=== PATIENT | female | born 1950 | race Caucasian/White ===

== ENCOUNTER 2018-12-20 13:52 | Inpatient (IN) | payer OTHER ==
[~2018-12-20] VITALS: Ht 160 cm; Wt 57.2 kg
[2018-12-20 14:00] VITALS: BP 157/80
[2018-12-20 14:08] LABS: ABSOLUTE NEUTROPHILS 5.7 thou/uL (1.4-8.2); BASOPHILS 0.5 % (0.0-2.0); EOSINOPHILS 1.3 % (0.0-3.0); HEMOGLOBIN 7.8 gm/dL (12.0-15.0); LYMPHOCYTES 20.7 % (24.0-44.0); MCH 30.1 pg (26.0-34.0); MCHC 33.8 g/dL (28.0-37.0); MCV 88.9 fL (80.0-100.0); MONOCYTES 6.4 % (1.0-8.0); PLATELET COUNT 616 thou/uL (150-400); POLYS 71.1 % (36.0-66.0); RBC 2.59 mil/uL (4.20-5.00); WBC 8.1 thou/uL (4.0-11.0)
[2018-12-20 14:15] LABS: CREATININE 0.9 mg/dL (0.6-1.0); POTASSIUM 4.4 mmol/L (3.5-5.1)
[2018-12-20 14:20] LABS: ALBUMIN 1.9 g/dL (3.4-5.0); TOTAL BILIRUBIN 0.2 mg/dL (<0.1-1.0); TOTAL PROTEIN 6.4 g/dL (6.4-8.2)
[2018-12-20 14:57] LABS: INR 1.1; PROTIME 11.2 Seconds (9.3-11.4)
[2018-12-20] MEDS ORDERED: MIRALAX17 GM PO (15:53)
[2018-12-20] MEDS ORDERED: ONDANSETRON HCL4 M2 PO (15:53)
[2018-12-20] MEDS ORDERED: POTASSIUM20 PO (15:54)
[2018-12-20] MEDS ORDERED: SEROQUEL 25 MG25 M1 PO (15:55)
[2018-12-20] MEDS ORDERED: TRAMADOL 50 MG50 MG PO (15:55)
[2018-12-20] MEDS ORDERED: CEFAZOLIN2 GM/100 M IV (15:56)
[2018-12-20] MEDS ORDERED: VITAMIN D3400 UNIT PO (15:57)
[2018-12-20] MEDS ORDERED: MAG-OXIDE400 MG PO (15:58)
[2018-12-20] MEDS ORDERED: MELATONIN3 MG PO (15:58)
[2018-12-20] MEDS ORDERED: LOPERAMIDE 2 MG2 M1 PO (15:58)
[2018-12-20] MEDS ORDERED: ATIVAN0.5 MG PO (16:06)
[2018-12-20] MEDS ORDERED: MULTIPLE VITAM1 EAC2 PO (16:08)
[2018-12-20 16:35] VITALS: BP 154/70
[2018-12-20 17:03] VITALS: BP 145/72
--- NOTE | 2018-12-20 17:27 | NUR ---
ADMISSION ASSESMENT COMPLETED. VSS. A/O/FORGETFUL. DENIES PAIN AT THIS TIME. NO NOTED SOA. NO NV. PT RESTING IN BED APPEARS COMFORTABLE. PT POOR HISTORIAN. UNABLE TO OBTAIN APPROPRIATE ANSWERS. WILL CONT. TO MONITOR.
[2018-12-20 18:15] VITALS: BP 145/69
[2018-12-20] MEDS ORDERED: FLONASE 0.05%50 MCG NASAL (19:18)
[2018-12-20] MEDS ORDERED: PLAVIX 75 MG TA75 M1 PO (19:18)
[2018-12-20] MEDS ORDERED: LASIX 40 MG TAB40 M2 PO (19:18)
[2018-12-20] MEDS ORDERED: GABAPENTIN 100100 MG PO (19:19)
[2018-12-20] MEDS ORDERED: HYDRALAZINE 2525 MG PO (19:20)
[2018-12-20] MEDS ORDERED: HYDROCHLOROTHIA25 M2 PO (19:20)
[2018-12-20] MEDS ORDERED: LISINOPRIL40 MG PO (19:21)
[2018-12-20] MEDS ORDERED: NOVOLOG100 UNIT/1 SUBQ (19:24)
[2018-12-20] MEDS ORDERED: CHILDREN'S ASPI81 M1 PO (19:25)
[2018-12-20] MEDS ORDERED: NORVASC5 MG PO (19:25)
[2018-12-20] MEDS ORDERED: LIPITOR 20 MG T20 M1 PO (19:26)
[2018-12-20] MEDS ORDERED: BISACODYL SUPP10 MG RECTAL (19:26)
[2018-12-20 19:44] VITALS: BP 112/70
--- NOTE | 2018-12-21 03:36 | NUR ---
PATIENT ALERT AND ORIENTED X4, FORGETFUL. IV PATENT. DRESSING ON L HEEL D/I. REMAINS ON BEDREST. SLEPT MOST OF NIGHT.
[2018-12-21 04:56] VITALS: BP 150/72
[2018-12-21 05:34] LABS: ABSOLUTE NEUTROPHILS 4.5 thou/uL (1.4-8.2); EOSINOPHILS 2.1 % (0.0-3.0); HEMATOCRIT 21.8 % (37.0-47.0); HEMOGLOBIN 7.2 gm/dL (12.0-15.0); LYMPHOCYTES 25.5 % (24.0-44.0); MCH 29.7 pg (26.0-34.0); MCV 89.7 fL (80.0-100.0); MONOCYTES 9.5 % (1.0-8.0); POLYS 61.9 % (36.0-66.0); RBC 2.43 mil/uL (4.20-5.00); RDW 14.9 % (10.5-14.5); WBC 7.3 thou/uL (4.0-11.0)
[2018-12-21 05:38] LABS: PLATELET COUNT 539 thou/uL (150-400)
[2018-12-21 05:45] LABS: CALCIUM 7.9 mg/dL (8.5-10.1); CREATININE 0.7 mg/dL (0.6-1.0); MAGNESIUM 1.2 mg/dL (1.8-2.4); POTASSIUM 4.4 mmol/L (3.5-5.1)
[2018-12-21 07:50] VITALS: BP 148/75
[2018-12-21 11:16] VITALS: BP 147/76
[2018-12-21 13:03] LABS: % SATURATION 14 % (20-39); IRON 23 ug/dL (50-170); TIBC 161 ug/dL (250-450)
--- NOTE | 2018-12-21 13:32 | NUR ---
PATIENT SLEPT MOST OF THE DAY. COMPLAINED OF MILD BACK PAIN WHEN REPOSITIONED. PATIENT DISPLAYED CONCERN WITH HAVING NOWHERE TO GO AFTER DISCHARGE AND WAS NOTICEABLY UPSET UPON DISCOVERING THAT SHE WILL BE RETURNING TO HER PREVIOUS FACILITY. AWAITING MRI. CONTINUES TO HAVE MILD, INTERMITTENT NOSEBLEEDS. ENT CONSULTED.
--- NOTE | 2018-12-21 13:43 | NUR ---
I have reviewed and concur with student documentation.
--- NOTE | 2018-12-21 14:13 | NUR ---
PT ADMITTED RELATED TO LEFT FOOT WOUND. CM REVIEWED CHART AND SPOKE WITH CARE TEAM. CM MET WITH PT AT BEDSIDE THIS DAY. PT IS A&O X4. CM ROLE INTRODUCED. PT INDICATED SHE HAD BEEN LIVING AT [facility]. SHE INDICATED SHE HAS LIVED THERE FOR A FEW YEARS. PT INDICATD SHE HAD USED A WHEELCHAIR TO ASSIST WITH MOBILITY PROP CUTTER AND THAT SHE HAD BEEN ABLE TO TRANSFER INDEPENDENT PROP CUTTER. CM CONFIRMED THAT PT'S SON BRII IS HER CONTACT/DPOA AND SHE INDICATED SHE DIDN'T KNOW WHERE HE WAS OR WHAT HE WAS DOING. CM ATTEMPTED PC TO HIM BUT NUMBER WAS BUSY. PT INDICATED SHE ANTICPATES RETURNING TO THE FACILITY ONCE MEDICALLY STABLE. CM TO FOLLOW INDICATED WITH DC PLANNING.
--- NOTE | 2018-12-21 15:32 | NUR ---
WOUND CONSULT: PT. WAS SEEN TODAY BY DR. WAKEFIELD AND MYSELF. PT. HAS MULTIPLE PRESSURE ULCERS TO HER BILATERAL LOWER EXTREMITYS: LEFT HEEL-STAGE 4 LEFT MTP JOINT-DEEP TISSUE INJURY LEFT FOOT DORSAL ASPECT-DEEP TISSUE INJURY RIGTH LATERAL LEG-STAGE 2 RIGHT MTP JOINT-DEEP TISSUE INJURY RIGHT LATERAL HEEL-UNSTAGABLE CONSULTS HAVE BEEN PLACED TO INFECTIOUS DISEASE, ORTHO AND DIETARY. ALONG WITH DIAGNOSTIC IMAGING TO GUIDE CARE. RECOMMENDATIONS: WOUND CARE TO LEFT MTP JOINT, DORSAL ASPECT, RIGHT MTP JOINT, RIGHT LATERAL HEEL: GENTLY CLEANSE WITH WOUND CLEANSER OR NORMAL SALINE, PAINT WITH BETADINE, LEAVE OPEN TO AIR, COMPLETE CARES DAILY. WOUND CARE TO LEFT HEEL: GENTLY CLEANSE AREA WITH WOUND CLEANSER OR NORMAL SALINE, COVER WITH OPTIFOAM AG, SECURE WITH KERLIX AND TAPE. COMPLETE CARES DAILY AND PRN. WOUND CARE TO RIGHT LATERAL LEG: GENTLY CLEANSE WITH WOUND CLEANSER OR NORMAL SALINE, COVER WITH OPTIFOAM BORDER, COMPLETE CARES DAILY AND PRN SOILAGE. PT. AND STAFF NURSE WERE INSTRUCTED ON PLAN OF CARE.
[2018-12-21 17:03] VITALS: BP 146/57
[2018-12-21 19:35] VITALS: BP 137/53
[2018-12-22 04:34] VITALS: BP 163/63
--- NOTE | 2018-12-22 05:20 | NUR ---
Assumed care of pt at 1900. Pt states she feels pain on bilateral legs. Prn pain meds administered. Pt able to rest comfortable most of the shift. Pt is anxious when awake. Q2h turn. Pt arterial ultrasound needs to be completed today. Fall precautions in place. Will continue to monitor.
[2018-12-22 08:10] VITALS: BP 167/61
--- NOTE | 2018-12-22 09:51 | HC ---
[facility] [place] [address] CONSULTATION Name: CAMILA LEMUS Room #: 431-P ADM IN M.R.#: [id number] Admission: 12/20/18 ������������������ Attend Phys: Michael Allan MD Discharge: ������������������ Date of : 54 Report #: [id number] THIS REPORT FOR: //name// CC: Michael Silva DATE OF SERVICE: 12/21/2018 INFECTIOUS DISEASES CONSULTATION REASON FOR CONSULTATION: Left calcaneus osteomyelitis. HISTORY OF PRESENT ILLNESS: The patient is a 68-year-old, previous stroke with right hemiparesis, who is a poor historian, presents with what sounds like epistaxis. History is poor and difficult to obtain by reading the records and discussing with the patient. I did discuss with the nursing staff who notes that the patient has had recurring epistaxis today. ENT is to evaluate her. She has underlying anxiety and was unable to go to her MRI scan of her heel as well as ultrasound of the left lower extremity arterial supply. She denies any chest pain, nausea, vomiting or diarrhea. She could give me no history regarding her foot. There is one record that she had been at [facility] for evaluation of the heel and had been on antibiotics. She does come in on cefazolin, duration of which is unclear at this point. REVIEW OF SYSTEMS: The patient was unable to give a clear review of systems history, although she reports no headache, cough or sputum production. No dysuria. ALLERGIES: None known. MEDICATIONS: As noted on NOV, now including cefazolin. PAST MEDICAL HISTORY: Recorded hypertension, hyperlipidemia, diabetes, peripheral vascular disease, stroke with right-sided hemiparesis, cataract surgery, left heel wound, peripheral vascular intervention. FAMILY HISTORY: Noncontributory. SOCIAL HISTORY: assisted resident, smoker of cigarettes, past alcohol use. PHYSICAL EXAMINATION: VITAL SIGNS: She is afebrile and hemodynamically stable. Lying in bed, in no distress. She was conversant. Had fairly dense right hemiparesis, arm greater than leg. SKIN: With small eschar to the medial distal right foot and extensive wound to the left heel region. There was exposed soft tissues and marked tenderness [facility] [address] [place] [address] CONSULTATION Name: CAMILA LEMUS Room #: 431-P ADM IN M.R.#: [id number] Admission: 12/20/18 ������������������ Attend Phys: Michael Allan MD Discharge: ������������������ Date of : 54 Report #: [id number] without definite bone palpable. The patient was very uncomfortable during her evaluation. Pulses in the left lower extremity, 3+ in the femoral, 2+ popliteal, 1+ dorsalis pedis and posterior tib. Capillary refill reasonable. Sensation in the foot normal. EYES: Without conjunctival hemorrhage or scleral icterus. MOUTH: Without mucositis. NECK: Supple, no palpable adenopathy. LUNGS: Clear. HEART: Regular, without murmur, gallop or rub. ABDOMEN: Soft, nontender, no hepatosplenomegaly or mass. Mood mildly anxious and confused. LABORATORY STUDIES: Reviewed. Hemoglobin 7.2; WBC 7.3; platelet count 539,000. Differential was unremarkable. Sodium 132, potassium 4.4, bicarbonate 23, creatinine 0.7. X-ray of the foot, left shows ulceration of the posterior aspect of the heel with cortical lucency in the calcaneus. No soft tissue ulceration. IMPRESSION: 1. A 68-year-old, previous stroke and peripheral vascular disease with a nonhealing wound to the left heel. I suspect underlying osteomyelitis of the calcaneus. 2. Peripheral vascular disease. 3. Dementia. 4. Cerebrovascular disease. 5. Epistaxis. RECOMMENDATIONS: We will continue cefazolin. Obtain previous culture results from [facility]. Orthopedic Surgery evaluation. Peripheral vascular evaluation. We will determine length of treatment depending upon the above findings and interventions. ��������������������������������������������� <ELECTRONICALLY SIGNED> ���������������������������������������� By: Timmy Sosa MD ��������������������������������������������� 12/22/18 0951 [id number] Timmy Sosa MD /nt
--- NOTE | 2018-12-22 10:39 | NUR ---
PT A&OX4, IV INTACT IN R HAND IFUSING NS @ 75ML/HR W/O COMPS. R SIDE WEAKNESS NOTED, REQUIRES MEAL TRAY SET UP. PT HAVING US/MRI AT THIS TIME. PT IS TEARFUL THIS AM DUE TO HAVING TO HAVE SURGERY 12/23/18. MEDICATED FOR LLE PAIN. WILL CONT TO MONITOR.
--- NOTE | 2018-12-22 13:30 | NUR ---
Powerbuilder spoke with the socialworker at [facility]. The pt has been there for 2 weeks under her skilled benefit. The pt came from [facility] for a snf stay and then plans to return home. Cm attempted to reach son Eliecer at his number listed as well as the pt's home number;however his number does not work and her home number was answered by someone that says they do not know the pt or cEtor. The pt reports he is homeless and she does not know how to reach him. Ortho recommendations for BKA noted. Pt is agreeable. [facility] updated. They do not have any AD/DPOA paperwork for the pt or any additional contacts. DC plan is to return there for ongoing skilled rehab and possible ltc placement.
[2018-12-22 16:33] VITALS: BP 144/55
[2018-12-22 19:35] VITALS: BP 190/74
[2018-12-23 00:03] VITALS: BP 161/90
--- NOTE | 2018-12-23 04:50 | NUR ---
Assumed care of pt at 1900. Pt c/o pain in the lower extremities and anxiety. Antianxiety and pain medications administered. Pain is tearful and expresses fear for surgery in the am. Therapeutic communication used. Per DIRECTOR MBA on duty, it was ok to give dose of fentanyl IV approx 1 hour before it is due. Prefo boots in place. BP elevated due to pt anxiety. Fall precautions in place. Will continue to monitor.
[2018-12-23 05:39] LABS: HEMATOCRIT 22.7 % (37.0-47.0); HEMOGLOBIN 7.5 gm/dL (12.0-15.0); MCH 29.7 pg (26.0-34.0); MCHC 33.1 g/dL (28.0-37.0); MCV 89.7 fL (80.0-100.0); RBC 2.53 mil/uL (4.20-5.00); RDW 15.3 % (10.5-14.5); WBC 9.6 thou/uL (4.0-11.0)
[2018-12-23 05:45] VITALS: BP 239/135
[2018-12-23 05:46] LABS: CREATININE 0.7 mg/dL (0.6-1.0); POTASSIUM 4.5 mmol/L (3.5-5.1)
[2018-12-23 06:06] LABS: BE(vivo) -2.8 mmol/L (-2 to +3); HCO3 22.7 mmol/L (22.0-26.0); PCO2 42.5 mmHg (35.0-45.0); PO2 79.2 mmHg (80.0-100.0); pH 7.345 (7.360-7.450); sO2 95.1 % (92.0-98.0)
[2018-12-23 06:12] VITALS: BP 168/82
--- NOTE | 2018-12-23 06:26 | NUR ---
pt c/o soa, business account manager called. see business account manager flowsheet.
[2018-12-23 08:07] VITALS: BP 145/60
--- NOTE | 2018-12-23 09:30 | EKG ---
[address] [place] [address] ELECTROCARDIOGRAM REPORT Name: CAMILA LEMUS Room #: 431-P ADM IN M.R.#: [id number] ������������������ Admission: 12/20/18 ������������������ Attend Phys: Michael Allan MD Discharge: ������������������ Date of : 54 Report #: [id number] ����������������������������������������������������������������� [id number] THIS REPORT FOR: //name// [facility] Test Date: 2018-12-23 Test Time: 06:14:03 Pat Name: CAMILA LEMUS Department: Room: 431 P Gender: F Chief Construction Inspector: brittney : 1950 Requested By: Mayela Samuels Order Number: [id number] MD: Paul Borja Measurements Intervals [place] Rate: 122 P: 48 [place]: 120 QRS: 2 QRSD: 85 T: 142 QT: 327 QTc: 466 Interpretive Statements Sinus tachycardia Atrial premature complex ST and T wave abnormality No previous ECG available for comparison Electronically Signed On 12-23-2018 9:30:20 CDT by Paul Borja [email or web address] ��������������������������������������������� <ELECTRONICALLY SIGNED> ���������������������������������������� By: Paul Borja MD, [facility] ��������������������������������������������� 12/23/18 0930 0614 3 Paul Borja MD, FACC /EPI
--- NOTE | 2018-12-23 10:06 | NUR ---
ASSUMED CARE OF PT AROUND 0715, RESTING, VS EXCELLENT. WILL ALLOW TO REST, MOVED HER A LITTLE TO RIGHT. HOOKED UP TO VS MACHINE AND ON 2L NC. WILL CONTINUE TO MONITOR. REPORT OF ANTIANXIETY MED GIVEN AROUND 0600, RESIDUAL LETHARGY D/T THIS.
--- NOTE | 2018-12-23 11:41 | NUR ---
CALLED PHYSICIAN'S OFFICE TO LET THEM KNOW OF PT'S CURRENT CONDITION, VS WNL, ANSWERS HER BDAY THEN SLAPS AWAY NURSE HAND WHEN SWABBING MOUTH WITH MOIST SWABS. CANNOT HAVE PT SIGN CONSENT AT THIS TIME. CANNOT GET AHOLD OF FAMILY SO GAVE SURGEON'S OFFICE AN FYI. WILL CONTINUE TO MONITOR. CONSENT ON CHART AT THIS TIME
[2018-12-23 16:55] LABS: MCV 89.9 fL (80.0-100.0)
[2018-12-23 16:56] LABS: MCH 29.6 pg (26.0-34.0); MCHC 32.9 g/dL (28.0-37.0); RBC 2.12 mil/uL (4.20-5.00); RDW 15.6 % (10.5-14.5); WBC 12.1 thou/uL (4.0-11.0)
[2018-12-23 17:01] LABS: HEMOGLOBIN 6.3 gm/dL (12.0-15.0)
--- NOTE | 2018-12-23 18:18 | NUR ---
REC QUICK REPORT ON PT'S SURGERY AND REC HER AT 1815. GAVE HER LORAZEPAM FOR YELLING/SCREAMING W/ANXIETY. WON'T KEEP HER O2 ON AT THIS TIME
[2018-12-23 20:07] VITALS: BP 177/60
[2018-12-23 23:07] LABS: HBsAG-EMPLOYEE EXPOSURE Negative (Negative); HCV AB-EMPLOYEE EXPOSURE 0.7 (0.0-0.9)
--- NOTE | 2018-12-24 04:09 | NUR ---
ASSUMED PT CARE 1900. PT ALERT AND ORIENTED. REASSESMRNT COMPLETE. PT REPORTED NAUSEA- SEE EMAR. PT REPORTED PAIN, SEE EMAR. PT CALL LIGHT WITHIN REACH. PT TEARFUL AND ANXIOUS. WILL CONTINUE POC UNTIL EOS.
[2018-12-24 04:46] LABS: HEMATOCRIT 22.1 % (37.0-47.0); HEMOGLOBIN 7.4 gm/dL (12.0-15.0); MCHC 33.7 g/dL (28.0-37.0); RBC 2.48 mil/uL (4.20-5.00)
[2018-12-24 05:00] LABS: CALCIUM 7.8 mg/dL (8.5-10.1); CREATININE 0.8 mg/dL (0.6-1.0); POTASSIUM 4.9 mmol/L (3.5-5.1)
[2018-12-24 05:31] VITALS: BP 171/73
[2018-12-24 07:10] VITALS: BP 165/54
[2018-12-24 08:35] LABS: FOLIC ACID 25.6 ng/mL (8.6-58.9)
--- NOTE | 2018-12-24 16:17 | NUR ---
WOUND FOLLOW UP: PT. WAS SEEN TODAY BY DR. WAKEFIELD AND MYSELF. PT. HAD HER SURGERY YESTERDAY AND ALL DRESSINGS ARE C/D/I AT THIS TIME. RECOMMENDATIONS: CONTINUE WITH CURRENT PLAN OF CARE. PT. AND STAFF NURSE WERE INSTRUCTED ON PLAN OF CARE.
[2018-12-24 17:25] VITALS: BP 151/62
--- NOTE | 2018-12-24 18:12 | NUR ---
PT A&OX1-2, IV INFUSING FLUIDS IN R AC W/O COMPS. NON AMB., DRSG TO L AKA C/D/I WRAPPED WITH VANIA WRAP. PT MOANING, C/O PAIN AT 06/23. PT REFUSED DRSG TO BE CHANGED TO L AKA WOUND TODAY WELL WORKING WITH PT. PT ALSO TEARY EYED. PT MEDIACATED FOR PAIN. WILL CONT. TO MONITOR.
[2018-12-24 21:05] VITALS: BP 149/67
[2018-12-25] VITALS (7 sets, daily range): BP systolic 138–177; BP diastolic 51–75
[2018-12-25 05:25] LABS: RDW 15.3 % (10.5-14.5)
[2018-12-25 05:26] LABS: HEMATOCRIT 20.2 % (37.0-47.0); HEMOGLOBIN 6.9 gm/dL (12.0-15.0); MCH 30.5 pg (26.0-34.0); MCHC 33.9 g/dL (28.0-37.0); MCV 89.8 fL (80.0-100.0); RBC 2.25 mil/uL (4.20-5.00); WBC 9.5 thou/uL (4.0-11.0)
[2018-12-25 05:32] LABS: CALCIUM 7.6 mg/dL (8.5-10.1); CREATININE 0.7 mg/dL (0.6-1.0); POTASSIUM 3.7 mmol/L (3.5-5.1)
--- NOTE | 2018-12-25 07:58 | NUR ---
PT REFUSED DRSG CHANGE.PT STATED THAT IT HURTS TOO MUCH WHEN IT IS TOUCHED.THIS NURSE OFFERED TO GIVE HER PAIN MED BEFORE DRSG CHANGE SHE ACCEPTED THE MEDICATION BUT STILL REFUSED THE DRSG CHANGE.PT REPOSITIONED IN BED PER HER REQUEST.IVF AND IV ABX ADMINISTERED ORDERED.PT NEEDED CONSTANT REMINDER TOO USE HER CALL LIGHT FOR ASSISTANCE INSTEAD OF YELLING.PT RESTING ON HER BED AT THIS TIME.REPORT OFF TO AM NURSE.
--- NOTE | 2018-12-25 17:58 | NUR ---
ASSUMED CARE OF PT AT 0700. ASSESSMENT COMPLETED. A&O,X4. FORGETFUL AT TIMES. FLAT AFFECT AND FUSSY AT TIMES. C/O 10/10 LIMB PAIN S/P LEFT AKA, COMPRESSION DRESSING IN PLACE. PAIN MEDS GIVEN ORDERED. DENIES N/V/D. SEVERAL SKIN WOUNDS RIGHT EXTREMITY, WOUND CARE GIVEN ORDERED. HBG 6.9 THIS AM, PHYSICIAN NOTIFIED. NEW ORDERS FOR BLOOD TRANSFUSION. PT TOLERATED PROCEDURE WELL, NO REACTIONS NOTED. VSS. ACHS, INSULIN GIVEN PER SLIDING SCALE. NO OTHER CHANGE IN STATUS. WILL CONTINUE TO MONITOR UNTIL EOS.
--- NOTE | 2018-12-26 00:19 | NUR ---
Assumed care of pt at 1900. Pt is anxious and c/o pain. Prn pain meds administered. Verde catheter in place. Post op AKA left lower extremity. Dressing clean and intact. Q2h turn. Fall precautions in place. Report given to edwar robles at 2300.
[2018-12-26 04:38] LABS: HEMATOCRIT 24.7 % (37.0-47.0); HEMOGLOBIN 8.7 gm/dL (12.0-15.0); MCH 30.7 pg (26.0-34.0); MCHC 35.1 g/dL (28.0-37.0); MCV 87.5 fL (80.0-100.0); RBC 2.83 mil/uL (4.20-5.00); RDW 14.8 % (10.5-14.5); WBC 8.7 thou/uL (4.0-11.0)
[2018-12-26 04:45] LABS: CALCIUM 7.5 mg/dL (8.5-10.1); CREATININE 0.5 mg/dL (0.6-1.0); POTASSIUM 4.1 mmol/L (3.5-5.1)
[2018-12-26 05:00] VITALS: BP 191/76
[2018-12-26 07:16] VITALS: BP 149/50
--- NOTE | 2018-12-26 11:29 | NUR ---
PT A&OX3, NON AMB., DRSG TO L AKA C/D/I WITH VANIA WRAP AND LIMB EDI COORDINATOR IN PLACE. IV INFUSING FLUIDS IN L FA W/O COMPS. O2@2L PER NC. C/O PAIN TO BACK, L KAREN AT 06/23. WILL CONT POC.
[2018-12-26 16:19] VITALS: BP 158/60
[2018-12-26 19:38] VITALS: BP 184/85
--- NOTE | 2018-12-27 04:45 | NUR ---
Assumed care of pt at 1900. Pt c/o pain in her left lower extremity and lower back. Prn pain meds administered. IVF and IV antibiotics infusing. Q2h turn. Pt not compliant with being turned every 2 hours. Education provided. Dressing on left lower extremity clean and intact. Prefo boots on, on right lower extremity. Fall precautions in place. Will continue to monitor.
[2018-12-27 04:51] VITALS: BP 173/77
--- NOTE | 2018-12-27 08:52 | HC ---
[facility] [place] [address] CONSULTATION Name: CAMILA LEMUS Room #: 431-P ADM IN M.R.#: [id number] Admission: 12/20/18 ������������������ Attend Phys: Michael Allan MD Discharge: ������������������ Date of : 54 Report #: [id number] THIS REPORT FOR: //name// CC: Michael Silva DATE OF SERVICE: 12/21/2018 CHIEF COMPLAINT: Multiple pressure ulcerations. HISTORY OF PRESENT ILLNESS: This is a 68-year-old female patient who is a resident of a nursing care facility who presents with a significant ulceration to her left heel. She has a history of diabetes mellitus and peripheral arterial disease. She has had previous cerebrovascular accident with right-sided hemiparalysis and she is nonambulatory. The patient complains of significant pain in her left heel. She is noted to have several other areas of pressure ulceration. I have been asked to see her with regard to wound care. PAST MEDICAL HISTORY: Positive for hypertension, hyperlipidemia, diabetes mellitus, peripheral vascular disease, cerebrovascular accident with right-sided weakness. SOCIAL HISTORY: Positive for past alcohol use and currently smokes approximately 3 cigarettes per day. FAMILY HISTORY: Noncontributory. REVIEW OF SYSTEMS: CONSTITUTIONAL: The patient denies fever, chills or weight loss. NEUROLOGICAL: The patient has right-sided weakness. ENT: The patient denies earache, nasal drainage, sore throat. CARDIOVASCULAR: The patient denies chest pain or palpitations, diaphoresis. PULMONARY: The patient denies cough or shortness of breath. GASTROINTESTINAL: The patient denies nausea, vomiting, diarrhea or abdominal pain. GENITOURINARY: The patient denies frequency or urgency of urination. Denies dysuria. ORTHOPEDIC: The patient does complain of pain in her left heel as well as some generalized joint pain. All other systems in a 14-point review of systems are negative. MEDICATIONS: Include Plavix, Flonase, Lasix, Neurontin, hydralazine, hydrochlorothiazide, Zestril, NovoLog, Norvasc, Lipitor, Dulcolax, Zofran, MiraLax, K-Dur, Seroquel, Ultram, cefazolin, melatonin, Imodium. ALLERGIES: None. [address] [address] CONSULTATION Name: CAMILA LEMUS Room #: 431-P [facility] IN M.R.#: [id number] Admission: 12/20/18 ������������������ Attend Phys: Michael Allan MD Discharge: ������������������ Date of : 54 Report #: [id number] PHYSICAL EXAMINATION: VITAL SIGNS: Include temperature 99.4, pulse 88, respiration 16, blood pressure 154/70. GENERAL: This is a chronically ill-appearing female patient who appears to be in moderate distress. HEENT: Head normocephalic. Nose and throat clear. NECK: Supple. LUNGS: Clear. HEART: Regular rhythm without murmur. ABDOMEN: Soft. Bowel sounds present. EXTREMITIES: Examination of the lower extremities demonstrates a very large pressure ulceration to the left posterior heel. There is exposed bone and the area is very tender to palpation and appears to be infected. She has scattered toe ulceration. She also has a deep tissue injury to her right first MTP and eschar to the right lateral heel, stage 2 pressure ulceration to the right lateral calf. CLINICAL IMPRESSION: 1. Stage 4 pressure ulcer of the right heel with probable underlying osteomyelitis. 2. Peripheral vascular disease by history and clinical exam. 3. Unstageable pressure ulceration to the right lateral heel. 4. Right-sided hemiparesis. 5. Stage 2 pressure ulceration of the right lateral calf. 6. Severe protein-calorie malnutrition with albumin of 1.9. RECOMMENDATIONS: At this point in time, we will check arterial Doppler. She may need vascular intervention to assist with healing really this would be a concern on either the right leg or the left leg. I suspect she has underlying osteomyelitis of the left heel and it is likely that the foot is not salvageable. She is nonambulatory, therefore an above-knee amputation would be most appropriate treatment as to avoid future additional surgeries due to the possibility of developing a flexion contracture at the knee. We will place her on a low air loss mattress with q. 2 hour turning and repositioning as she is at risk for additional pressure ulceration that she has significant immobility. She will need aggressive nutritional support. Recommend PRAFO boots for pressure prophylaxis while in bed. We will consult Orthopedics for possible surgical intervention as well as check her arterial status and consider evaluation with Interventional Radiology. I appreciate being asked to see her in consultation. ��������������������������������������������� <ELECTRONICALLY SIGNED> ���������������������������������������� By: Cristofer Olivares MD ��������������������������������������������� 12/27/18 0852 [id number] [id number] Cristofer Olivares MD /nt
[2018-12-27 09:22] VITALS: BP 197/81
[2018-12-27] MEDS ORDERED: NORCO 5-325 TA1 EACH PO (13:09)
--- NOTE | 2018-12-27 14:41 | NUR ---
WOUND FOLLOW UP: PT. WAS SEEN TODAY BY DR. WAKEFIELD AND MYSELF. PT. WOULD NOT ALLOW FOR HER SURGICAL SITE TO BE EVLAUATED AND WAS TEARFUL WITH INSPECTION OF LLE. RECOMMEDATIONS: CONTINUE WITH CURRENT PLAN OF CARE. PT. AND STAFF NURSE WERE INSTRUCTED ON PLAN OF CARE.
--- NOTE | 2018-12-27 15:05 | NUR ---
PT. DISCHARGING BACK TO [facility] FAXED DC ORDERS/SUMMARY TO FACILITY AND SPOKE WITH CARL IN ADM. SHE RECEIVED DC ORDERS AND ARRANGED TRANSPORT VIA WC VAN WITH 2L 02 FOR 1600 TODAY. TRIED NOTIFYING PT'S SON BUT PHONE OUT OF SERVICE. UNIT NOTIFIED AND CHART COPY PER US. RN TO CALL REPORT TO [phone].
--- NOTE | 2018-12-27 16:28 | NUR ---
ASSUMED CARE OF PT AT 0700. ASSESSMENT CHARTED. A&O,X4. C/O ANXIETY AND PAIN LEFT LOWER EXTREMITY S/P LEFT AKA, COMPRESSION DRESSING IN PLACE. RIGHT SIDED WEAKNESS DUE TO HX CVA. PAIN AND ANXIETY MEDS GIVEN ORDERED. [address] DENIES SOA OR CHEST PAIN. SANTANA CATHETER REMOVED ORDERED, 500 ML OUTPUT NOTED. PT LEFT IN STABLE CONDITION VIA WHEELCHAIR AT 16:30 TO [facility].
--- NOTE | 2018-12-27 17:06 | PATH ---
[facility] [address] [place] [address] PATHOLOGY RPT PROCEDURE Name: JOLIE LEMUS Room #: 431-P DIS IN M.R.#: [id number] ������������������ Admission: 12/20/18 ������������������ Date of : 54 Discharge: 12/27/18 Report #: [id number] Path Case #: [id number] [facility] Accession Number: [id number] . 01 Material submitted: . leg - LEFT ABOVE THE KNEE AMPUTATION. Modifiers: left . 01 Clinical history: . Osteomyelitis . 02 Diagnosis: Leg, left, above the knee amputation: - Ulceration along with gangrenous necrosis and marked acute inflammation extending into underlying tissue including bone. - Bone associated with marked acute osteomyelitis and osteonecrosis. - Anterior tibial vessels and popliteal artery showing significant luminal narrowing. - Skin and bone margins viable and unremarkable. (IUV:pit 12/27/2018) QTP/12/27/2018 . 02 Electronically signed: . Zoey Sadler MD, Pathologist NPI- [id number] . 01 Gross description: . The specimen is received in a red biohazard bag, labeled, "Jolie Lemus, left pwcyx-hts-sqjw amputation", is an above the knee amputation of the left leg measuring 19.5 cm from distal tip of big toe to heel, 50 cm from heel to proximal skin resection margin. Extending above the proximal skin resection margin is a segment of femur measuring 5.5 cm in length by 3.0 x 2.8 cm. The skin, soft tissue, and bone at the margin appear viable. The femoral artery at the margin is patent. The knee joint is shawnee and contains clear fluid. There are 5 toes, all with intact thickened, yellow nails. The big toe on the medial aspect is goetz-white and irregular. There is a 5.0 x 4.2 cm ulcer at the heel showing a goetz-white necrotic ulcer bed that possibly extends to the underlying bone. The skin is krueger-white and edematous surrounding the ulcer. The popliteal artery shows intimal calcification with narrowing of the lumen. The anterior artery shows possible intimal thickening. The posterior artery is patent. No venous thrombi are identified. Tableau Lead tissue is submitted as follows: A1. Proximal margin, skin and underlying soft tissue A2. Proximal margin, bone (bone marrow after decalcification) A3. Proximal margin, vessels. A4. Ulcer to underlying bone after decalcification and ulcer to skin A5. Vessels (Popliteal artery = inked black, anterior = inked blue and [address] [address] PATHOLOGY RPT PROCEDURE Name: JOLIE LEMUS Room #: 431-P DIS IN M.R.#: [id number] ������������������ Admission: 12/20/18 ������������������ Date of : 54 Discharge: 12/27/18 Report #: [id number] Path Case #: [id number] posterior = none) (SWS; 12/24/2018) SHS/SHS . 02 Pathologist provided ICD-10: M86.162, M87.862, I96, L98.499 . 02 CPT . 496070, [id number] Specimen Comment: A courtesy copy of this report has been sent to Specimen Comment: [phone], , . Specimen Comment: Report sent to ,DR CUMMINGS / DR RIVERA Performed at: [address] [facility] [address], [place] [id number] MD Miky Holguin MD Phone: [phone] Performed at: [address] [facility] [address] [id number] MD Zoey Sadler MD Phone: [phone]
--- NOTE | 2018-12-27 20:44 | O ---
[address] [address] OPERATIVE REPORT Name: CAMILA LEMUS Room #: 431-P [facility] IN M.R.#: [id number] Admission: 12/20/18 ������������������ Attend Phys: Michael Allan MD Discharge: 12/27/18 ������������������ Date of : 54 Report #: [id number] THIS REPORT FOR: //name// CC: Michael Silva DATE OF SERVICE: 12/23/2018 SERVICE: Orthopedics. FACILITY: [facility] SURGEON: Luciano Sanz MD FLIGHT CONTROL MANAGER: Juliann Tabor NP. INDICATIONS FOR FLIGHT CONTROL MANAGER: Retraction, extremity positioning and assistance with the amputation. PREOPERATIVE DIAGNOSES: 1. Chronic left foot wound with chronic left foot pain and chronic infection. 2. Diabetes. 3. Severe peripheral vascular disease. 4. Right-sided hemiparesis secondary to prior stroke. 5. Nonambulatory status. POSTOPERATIVE DIAGNOSES: 1. Chronic left foot wound with chronic left foot pain and chronic infection. 2. Diabetes. 3. Severe peripheral vascular disease. 4. Right-sided hemiparesis secondary to prior stroke. 5. Nonambulatory status. PROCEDURE: Left above knee amputation. ANESTHESIA: General. COMPLICATIONS: None. DRAINS: None. SPECIMENS: Left leg. FINDINGS: 1. Severe muscle edema in the thigh. 2. Sclerotic plaque noted within the femoral artery with significant occlusion [address] [address] OPERATIVE REPORT Name: CAIMLA LEMUS Room #: 431-P [facility] IN ..#: [id number] Admission: 12/20/18 ������������������ Attend Phys: Michael Allan MD Discharge: 12/27/18 ������������������ Date of : 54 Report #: [id number] at the level of the amputation. HISTORY AND INDICATIONS: The patient is a 68-year-old female with a history of severe peripheral vascular disease with a nonhealing wound of her left foot. She had been admitted to the hospital previously for this wound at [facility] and had attempted nonsurgical management. She is having worsening pain, illness and infirmity associated with the wound. She had osteomyelitis of the calcaneus and it was determined that the only viable option was amputation. She had a vascular study, which showed significant popliteal stenosis. She did not have strong palpable pulses. She is a [place] resident, does not have supportive family or friend's structure and is nonambulatory. Therefore, we felt that the best option and safest option was above knee amputation based on the vascular study and the patient's functional status. Risks, benefits, alternatives and indications were discussed with her. Risks up to and including mortality. PROCEDURE IN DETAIL: After the left leg was correctly identified as the operative extremity, the patient was taken to the operating room where general anesthesia was induced without complication. She was padded appropriately. Prophylactic antibiotics were administered at appropriate time. Left leg was prepped and draped in a standard sterile fashion. Time-out procedure was performed. A sterile tourniquet was applied to the left leg. The leg was exsanguinated via elevation. The majority of the blood loss that was encountered intraoperatively was from intravascular volume within the leg. The majority of the bleeding occurred during tourniquet inflation time. The anterior and posterior flaps were drawn on the skin and then a full-thickness skin flap. Incisions were made. The fascia was incised and the muscle was incised allowing access to the anterior femur. The femur was exposed and then transected with the saw. The vascular structures were dissected free, were tied with 0 silk ties and then incised. This is when the large plaque within the femoral artery was encountered. The sciatic nerve was dissected free and then it was pulled distally and then sharply transected allowing it to retract proximally. After the amputation had been completed, tourniquet was let down. Hemostasis was achieved. There really was not significant bleeding after the tourniquet was let down and the leg had been removed. The wound was then thoroughly irrigated and then the fascial layer was closed with 0 Vicryl suture. An adductor myodesis was performed through a drill hole in the medial femoral shaft distally. After the fascial layer was closed, the skin was closed with 2-0 Vicryl followed by skin eitan. No drain was placed since the patient did not demonstrate significant bleeding intraoperatively and there was adequate hemostasis. Sterile dressing was applied. The patient was awakened from [place] [id number] OPERATIVE REPORT Name: CAMILA LEMUS Room #: 431-P [facility] IN M.R.#: [id number] Admission: 12/20/18 ������������������ Attend Phys: Michael Allan MD Discharge: 12/27/18 ������������������ Date of : 54 Report #: [id number] anesthesia and taken to the recovery room in stable condition. No complications. ��������������������������������������������� <ELECTRONICALLY SIGNED> ���������������������������������������� By: Luciano Sanz MD ��������������������������������������������� 12/27/18 [id number] [id number] Luciano Sanz MD /nt
== END 2018-12-27 16:27 | DRG 239 ==
LOC: ER 13:52 → EROBS 15:45 → 4E 15:45
PROVIDERS: Emergency Medicine; Hospitalist; Nurse Practitioner; Nurse Practitioner Family; Orthopaedic Surgery Sports Medicine; ADMIT Internal Medicine
PROC: 2Y41X5Z Packing of Nasal Region using Packing Material (ICD-10-PCS; principal; 2018-12-21)
PROC: 30233N1 Transfusion of Nonautologous Red Blood Cells into Peripheral Vein, Percutaneous Approach (ICD-10-PCS; 2018-12-23)
PROC: 0Y6D0Z1 Detachment at Left Upper Leg, High, Open Approach (ICD-10-PCS; 2018-12-23)
DX: E11.51 Type 2 diabetes mellitus with diabetic peripheral angiopathy without gangrene (principal); L89.614 Pressure ulcer of right heel, stage 4; E43 Unspecified severe protein-calorie malnutrition; J96.00 Acute respiratory failure, unspecified whether with hypoxia or hypercapnia; D62 Acute posthemorrhagic anemia; I69.351 Hemiplegia and hemiparesis following cerebral infarction affecting right dominant side; M86.8X7 Other osteomyelitis, ankle and foot; I70.202 Unspecified atherosclerosis of native arteries of extremities, left leg; E11.69 Type 2 diabetes mellitus with other specified complication; E78.5 Hyperlipidemia, unspecified; E11.621 Type 2 diabetes mellitus with foot ulcer; F41.9 Anxiety disorder, unspecified; R32 Unspecified urinary incontinence; L97.529 Non-pressure chronic ulcer of other part of left foot with unspecified severity; M62.84 Sarcopenia; E83.42 Hypomagnesemia; E66.9 Obesity, unspecified; K59.00 Constipation, unspecified; I50.9 Heart failure, unspecified; I11.0 Hypertensive heart disease with heart failure; R04.0 Epistaxis; F03.90 Unspecified dementia, unspecified severity, without behavioral disturbance, psychotic disturbance, mood disturbance, and anxiety; F17.210 Nicotine dependence, cigarettes, uncomplicated; L89.892 Pressure ulcer of other site, stage 2; Z68.22 Body mass index [BMI] 22.0-22.9, adult; Z79.02 Long term (current) use of antithrombotics/antiplatelets; Z79.51 Long term (current) use of inhaled steroids; Z79.4 Long term (current) use of insulin; Z79.899 Other long term (current) drug therapy
CPT/HCPCS: 10084; 50010; 50101; 50386; 51412; 53000; 56524; 56525; 56526; 56528; 57091; 57179; 62110; 62900; 65090; 70005